=== PATIENT | female | born 1975 | race Caucasian/White ===

== ENCOUNTER 2024-10-03 10:05 | Outpatient (REF) | payer BC, SELFPAY ==
--- NOTE | ~2024-10-03 | XR_ITS ---
EXAMINATION: LEFT ANKLE, LEFT FOOT CLINICAL INFORMATION: Tripped on the stairs with bruising on the lateral dorsal aspect of the foot COMPARISON: Left ankle 04/02/2019 TECHNIQUE: 3 views left ankle, 3 views left foot FINDINGS: No significant bone, joint or soft tissue abnormality seen. XR/XR ankle LT min 3V IMPRESSION: Negative exam. Electronically signed by: Reynold Dougherty MD 10/03/2024 11:54 AM [facility]
--- NOTE | ~2024-10-03 | XR_ITS ---
EXAMINATION: LEFT ANKLE, LEFT FOOT CLINICAL INFORMATION: Tripped on the stairs with bruising on the lateral dorsal aspect of the foot COMPARISON: Left ankle 04/02/2019 TECHNIQUE: 3 views left ankle, 3 views left foot FINDINGS: No significant bone, joint or soft tissue abnormality seen. XR/XR foot LT min 3V IMPRESSION: Negative exam. Electronically signed by: Reynold Dougherty MD 10/03/2024 11:54 AM [facility]
== END 2024-10-03 10:06 | disposition home or self-care (01) ==
LOC: HO.HMGCX 10:05
PROVIDERS: PCP Family Medicine; Visit Provider Physician Assistant
DX: S93.602A Unspecified sprain of left foot, initial encounter (principal); W10.9XXA Fall (on) (from) unspecified stairs and steps, initial encounter; Y93.9 Activity, unspecified; Y92.009 Unspecified place in unspecified non-institutional (private) residence as the place of occurrence of the external cause; Y99.9 Unspecified external cause status
CPT/HCPCS: 73610; 73630

== ENCOUNTER 2024-10-03 10:05 | Outpatient (AMB) | payer BC, SELFPAY ==
--- NOTE | 2024-10-03 10:19 | AM.OFFWIN_ITS ---
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 Patient Tobacco Use Status: Never used Tobacco Allergies No Known Allergies [No Known Allergies*] Allergy (Unverified 10/03/24 10:22) Do you need a note to return to daycare/school/sports/work: No HPI HPI Comments History of Present Illness Details History of Present Illness - The patient is a 49-year-old female pr esenting with an injury to the left foot last evening. - She experienced a fall last night at [place] [facility] residence, misjudging a step on the way out, resulting in a jamming sensation of the left foot. - Despite significant pain, she managed to walk to a vehicle but was tearful due to the intensity. - Since the injury, she is unable to amber r weight on the affected foot and describes feelings of crunching in the area, although swelling is not pronounced. - Bruising is observed laterally on the left foot, and there is tenderness upon manipulation, especially when wiggling the toes. - Ice and elevation have provided some s ymptomatic alleviation. Hip pain or other leg pain is denied. Physical Exam General: Cooperative, healthy appearing, comfortable, no acute distress and well developed Orientation: Patient oriented x3 Limitations: Unable to bear weight on the left foot Head: Normal to inspection Ears: Hearing grossly normal bilaterally Nose: Normal external nose present Face and sinus: Normal facial exam Eyes: Appearance normal, both eyes and all related structures Neck: Normal visual inspection and Yes full ROM Respiratory: Normal respiratory effort and able to speak in complete sentences. Skin: ecchymosis noted on the lateral side of the left foot Neuro: Patient oriented x3 Extremities: Left foot, lateral ecchymosis, TTP along 5th metatarsal and dorsal midfoot. Toes with full ROM although with pain on 3-5, all toes NVI. Very mild swelling noted. PFSH Social History Patient Tobacco Use Status: Never used Tobacco Review of Systems Const All systems reviewed & are unremarkable except as noted in HPI and below Physical Exam Vital Signs: Last Vital Signs Pulse 86 10/03/24 10:22 BP 140/80 H 10/03/24 10:22 Pulse Ox 98 10/03/24 10:22 Oxygen Delivery Method Room Air 10/03/24 10:22 BMI result Body Mass Index 21.6 Results Reviewed Results Reviewed: [facility] [place] [address] XRay Report Signed Patient: Angelita Robledo MR#: [id number] : 1975 Acct:[id number] Age/Sex: 49 / F ADM Date: 10/03/24 Loc: HO.[facility]X Attending Dr: Clair Vincent PA-C Ordering Physician: Clair Vincent PA-C Date of Service: 10/03/24 Procedure(s): XR foot LT min 3V Accession Number(s): [id number] cc: Deedee Patel MD; Clair Vincent PA-C EXAMINATION: LEFT ANKLE, LEFT FOOT CLINICAL INFORMATION: Tripped on the stairs with bruising on the lateral dorsal aspect of the foot COMPARISON: Left ankle 04/02/2019 TECHNIQUE: 3 views left ankle, 3 views left foot FINDINGS: No significant bone, joint or soft tissue abnormality seen. XR/XR foot LT min 3V IMPRESSION: Negative exam. Electronically signed by: Reynold Dougherty MD 10/03/2024 11:54 AM [facility] Dictated By: Reynold Dougherty MD Signed By: <Electronically signed by Reynold Dougherty MD in OV> 10/03/24 1154 DD/ 1040 TD/TT: 10/03/24 1047 Government Affairs Researcher: SS Assessment & Plan Assessment & Plan (1) Ankle pain, left: Code(s): M25.572 - Pain in left ankle and joints of left foot Qualifiers: Chronicity: acute Qualified Code(s): M25.572 - Pain in left ankle and joints of left foot Plan: Plan An x-ray of the left foot and ankle is planned to evaluate for a fracture considering the inability to bear weight and significant bruising. Although swelling is not prominent, the presentation warrants imaging for definitive assessment. Current management includes continuation of ice and elevation for relief. Further referral to orthopedics may be considered pending imaging r esults. My interpretation of the left foot x-ray is possible fractures in the medial and lateral cuneiform bones, reached out to Ortho, placed pt in a short boot, she has her own crutches. Advised NON WEIGHT bearing until I hear from Ortho (they are reviewing the case now), rest, ice and elevation. Radiologist read xray's as No significant bone, joint or soft tissue abnormality seen . I advised to get xray's repeated if pain not improving over the next few days. NWB in boot for now but she should follow up with Orthopedic doctor in the next few days. Patient was informed and verbally consented to the use of an ambient scribe for clinic note documentation during this visit. (2) Foot pain, left: Code(s): M79.672 - Pain in left foot Plan: as above Orders: Orders XR ankle LT min 3V Today M25.572 - Pain in left ankle and joints of left foot XR foot LT min 3V Today M79.672 - Pain in left foot Coding Level of Care Code New Pt Level 4 (61381) Diagnoses Acute left ankle pain M25.572 Chronicity: acute Foot pain, left M79.672
[2024-10-03 10:22] VITALS: BP 140/80; PULSE 86; O2SAT 98; BMI 21.6
== END 2024-10-03 12:02 | disposition home or self-care (01) ==
PROVIDERS: PCP Family Medicine; Visit Provider Physician Assistant
DX: M25.572 Pain in left ankle and joints of left foot (principal); M79.672 Pain in left foot